=== PATIENT | male | born 1965 | race Caucasian/White ===

== ENCOUNTER → 2017-08-10 10:54 | Outpatient (CLI) | payer OTHER, SELFPAY ==
[2017-08-10 18:44] LABS: Amphetamine/Metha Screen,Urine Negative ng/mL (<1000); Barbiturates Screen,Urine Negative ng/mL (<200); Benzodiazepines Screen,Urine Negative ng/mL (200); Cannabinoid Screen,Urine Negative ng/mL (<50); Cocaine Screen,Urine Negative ng/g (<300); Methadone Screen,Urine Negative ng/mL (<300); Opiate Screen,Urine Negative ng/mL (<300); Phencyclidine Screen,Urine Negative ng/mL (<25)
== END ==
PROVIDERS: Visit Provider Nurse Practitioner Family
DX: Z79.899 Other long term (current) drug therapy (principal)
CPT/HCPCS: 80305

== ENCOUNTER → 2017-08-11 09:21 | Outpatient (REF) | payer OTHER, SELFPAY | LOC: LAB 09:21 | PROVIDERS: Visit Provider Nurse Practitioner Family | DX: Z79.899 Other long term (current) drug therapy (principal) ==

== ENCOUNTER → 2017-11-29 08:29 | Outpatient (CLI) | payer BC, SELFPAY ==
[2017-11-29 08:57] LABS: Basophils # 0.1 K/mm3 (0-0.2); Basophils % 0.9 % (0.1-2.0); Eosinophils # 0.3 K/mm3 (0.0-0.4); Eosinophils % 4.7 % (0.1-12.0); Hemoglobin 14.9 g/dL (14.1-18.0); Lymphocytes # 2.4 K/mm3 (0.7-4.5); Lymphocytes % 33.9 K/mm3 (10-50); Mean Corpuscular HGB Conc 33.1 g/dL (31.8-35.4); Mean Corpuscular Hemoglobin 30.1 pg (27.0-31.2); Mean Corpuscular Volume 91.1 fl (80-94); Mean Platelet Volume 8.6 fl (7.4-10.4); Monocytes # 0.3 K/mm3 (0.1-1.0); Monocytes % 4.6 % (1.7-9.3); Neutrophils % 55.9 % (37.0-80.0); Platelet Count 271 K/mm3 (142-424); Red Blood Count 4.94 M/mm3 (4.60-6.20); Red Cell Distribution Width 13.4 % (11.5-17.5); White Blood Count 7.1 K/mm3 (4.8-10.8)
--- NOTE | 2017-11-29 09:42 | XR_ITS ---
XR hand RT min 3V HISTORY: Pain ITS.REASON: hand ORDERING PHYSICIAN: Evelin Alfredo PATIENT AGE: 52 years COMPARISON: FINDINGS: There are mild osteoarthritic changes of the PIP joint of the third and fourth digits. No fracture or dislocation. Mild cystic changes are present at the lunate. No erosive changes apparent IMPRESSION: Mild osteoarthritis of the right hand
--- NOTE | 2017-11-29 09:42 | XR_ITS ---
XR knee LT 3V HISTORY: ITS.REASON: knee pain ORDERING PHYSICIAN: Evelin Alfredo PATIENT AGE: 52 years COMPARISON: FINDINGS: There are mild osteoarthritic changes involving all 3 compartments slightly greater at the medial compartment with small osteophytes at the medial compartment and posterior patella. No fracture or dislocation. No lytic or blastic change. IMPRESSION: Mild osteoarthritis of the left knee
[2017-11-29 10:26] LABS: Alanine Aminotransferase 41 U/L (12-78); Albumin Level 3.7 gm/dL (3.4-5.0); Alkaline Phosphatase 93 U/L (46-116); Anion Gap 11.7 mEq/L (5-15); Aspartate Amino Transferase 31 U/L (15-37); Bilirubin,Total 1.1 mg/dL (0.2-1.0); Blood Urea Nitrogen 14 mg/dL (7-18); Calcium 9.4 mg/dL (8.5-10.1); Carbon Dioxide 29 mmol/L (21.0-32.0); Chloride 107 mmol/L (98-107); Chol/HDL Ratio 4.8 (1-3.5); Cholesterol 177 mg/dL (140-200); Creatinine,Serum 1.01 mg/dL (0.70-1.30); Estimated Glomerular Filt Rate 77 ml/min (>60); Free T4 (Free Thyroxine) 1.12 ng/dl (0.76-1.46); GFR (African American) 93 ML/MIN (>60); Globulin 3.8 gm/dl (1.3-3.2); Glucose 99 mg/dL (74-106); HDL Cholesterol 37 mg/dL (27-67); LDL Cholesterol 120 mg/dL (0-130); Potassium 4.7 mmoL/L (3.5-5.1); Sodium 143 mmol/L (136-145); Thyroid Stimulating Hormone 5.09 uIU/ml (0.358-3.740); Total Protein,Serum 7.5 gm/dL (6.4-8.2); Triglycerides 100 mg/dL (30-200); VLDL Cholesterol 20 mg/dL (0-40)
== END ==
PROVIDERS: PCP Nurse Practitioner Family; Visit Provider Nurse Practitioner Family
DX: S69.91XA Unspecified injury of right wrist, hand and finger(s), initial encounter (principal); M25.561 Pain in right knee; E66.9 Obesity, unspecified
CPT/HCPCS: 36415; 73130; 73562; 80053; 80061; 84439; 84443; 85025

== ENCOUNTER → 2019-05-29 14:11 | Outpatient (CLI) | payer OTHER, SELFPAY ==
[2019-05-29 14:31] LABS: Basophils # 0.1 K/mm3 (0-0.2); Basophils % 0.8 % (0.1-2.0); Eosinophils # 0.3 K/mm3 (0.0-0.4); Eosinophils % 2.7 % (0.1-12.0); Lymphocytes # 2.2 K/mm3 (0.7-4.5); Lymphocytes % 19.7 % (10-50); Mean Corpuscular HGB Conc 31.9 g/dL (31.8-35.4); Mean Corpuscular Hemoglobin 30.3 pg (27.0-31.2); Mean Corpuscular Volume 94.8 fl (80-94); Mean Platelet Volume 11.2 fl (7.4-10.4); Monocytes # 0.3 K/mm3 (0.1-1.0); Monocytes % 3.1 % (1.7-9.3); Neutrophils # 8.2 K/mm3 (1.8-7.8); Neutrophils % 73.8 % (37.0-80.0); Platelet Count 244 K/mm3 (142-424); Red Blood Count 4.96 M/mm3 (4.60-6.20); Red Cell Distribution Width 13.4 % (11.5-17.5)
[2019-05-29 14:51] LABS: Alanine Aminotransferase 58 U/L (12-78); Albumin Level 3.9 gm/dL (3.4-5.0); Albumin/Globulin Ratio 1.1 (1.1-1.8); Alkaline Phosphatase 91 U/L (46-116); Anion Gap 13.2 mEq/L (5-15); Aspartate Amino Transferase 41 U/L (15-37); Bilirubin,Total 1.1 mg/dL (0.2-1.0); Blood Urea Nitrogen 13 mg/dL (7-18); Calcium 9.2 mg/dL (8.5-10.1); Carbon Dioxide 26 mmol/L (21.0-32.0); Chloride 103 mmol/L (98-107); Chol/HDL Ratio 5.4 (1-3.5); Cholesterol 193 mg/dL (140-200); Creatinine,Serum 0.95 mg/dL (0.70-1.30); Estimated Glomerular Filt Rate 82 ml/min (>60); GFR (African American) 100 ML/MIN (>60); Globulin 3.6 gm/dl (1.3-3.2); Glucose 114 mg/dL (74-106); HDL Cholesterol 36 mg/dL (27-67); LDL Cholesterol 99 mg/dL (0-130); Potassium 4.2 mmoL/L (3.5-5.1); Sodium 138 mmol/L (136-145); T4 (Thyroxine) 8.8 ug/dl (4.7-13.3); Thyroid Stimulating Hormone 4.68 uIU/ml (0.358-3.740); Total Protein,Serum 7.5 gm/dL (6.4-8.2); Triglycerides 290 mg/dL (30-200); VLDL Cholesterol 58 mg/dL (0-40)
[2019-05-31 08:28] LABS: Vitamin D 25 Hydroxy 15.9 ng/mL (30.0-100.0)
== END ==
PROVIDERS: Visit Provider Nurse Practitioner Family
DX: E66.9 Obesity, unspecified (principal); E55.9 Vitamin D deficiency, unspecified; Z79.899 Other long term (current) drug therapy
CPT/HCPCS: 80053; 80061; 82652; 84436; 84443; 85025

== ENCOUNTER → 2020-03-31 12:56 | Outpatient (CLI) | payer MEDICAID, SELFPAY ==
--- NOTE | 2020-03-31 13:00 | XR_ITS ---
PROCEDURE: XR KNEE LT 3V CLINICAL INDICATION: knee pain COMPARISON: CR [id number] XR knee LT 3V from 11/29/2017 FINDINGS: No fracture or dislocation. No lytic or blastic change. There is normal mineralization. There are mild osteoarthritic changes involving all 3 compartments greatest in the medial compartment. No lytic or blastic change. Only minimal progression compared to 11/29/2017. Other findings:None. IMPRESSION: Mild osteoarthritis Dictated by: Luis Miguel Allen MD 03/31/2020 14:17 Luis Miguel Allen MD in [place] 03/31/2020 14:17
[2020-03-31 14:15] LABS: Basophils # 0.1 K/mm3 (0-0.2); Eosinophils # 0.3 K/mm3 (0.0-0.4); Hemoglobin 14.6 g/dL (14.1-18.0); Lymphocytes # 2.4 K/mm3 (0.7-4.5); Lymphocytes % 36.6 % (10-50); Mean Corpuscular HGB Conc 33.9 g/dL (31.8-35.4); Mean Corpuscular Hemoglobin 31.5 pg (27.0-31.2); Mean Corpuscular Volume 93.1 fl (80-94); Mean Platelet Volume 9.6 fl (7.4-10.4); Monocytes # 0.3 K/mm3 (0.1-1.0); Monocytes % 5.1 % (1.7-9.3); Neutrophils # 3.4 K/mm3 (1.8-7.8); Neutrophils % 52.2 % (37.0-80.0); Platelet Count 226 K/mm3 (142-424); Red Blood Count 4.62 M/mm3 (4.60-6.20); Red Cell Distribution Width 13.4 % (11.5-17.5); White Blood Count 6.5 K/mm3 (4.8-10.8)
[2020-03-31 16:29] LABS: Chloride 106 mmol/L (98-107)
[2020-03-31 16:30] LABS: Potassium 4.3 mmoL/L (3.5-5.1); Sodium 139 mmol/L (136-145)
[2020-03-31 16:32] LABS: Alanine Aminotransferase 67 U/L (12-78); Albumin/Globulin Ratio 1.1 (1.1-1.8); Alkaline Phosphatase 110 U/L (38-126); Anion Gap 11.3 mEq/L (5-15); Aspartate Amino Transferase 67 U/L (17-59); Bilirubin,Total 1.1 mg/dl (0.2-1.3); Blood Urea Nitrogen 14 mg/dl (9-20); Carbon Dioxide 26 mmol/L (22.0-30.0); Cholesterol 191 mg/dl (140-200); Estimated Glomerular Filt Rate 100 ml/min (>60); GFR (African American) 121 ML/MIN (>60); Globulin 3.6 g/dL (1.3-3.2); Total Protein,Serum 7.6 g/dl (6.3-8.2); Triglycerides 246 mg/dl (30-150); VLDL Cholesterol 49 mg/dL (0-40)
[2020-03-31 16:33] LABS: Calcium 9.4 mg/dl (8.4-10.2); Glucose 100 mg/dl (74-100); HDL Cholesterol 38 mg/dl (40-60)
[2020-03-31 16:44] LABS: Direct LDL Cholesterol 120.34 mg/dL (100-129)
[2020-03-31 16:50] LABS: T4 (Thyroxine) 10.2 ug/dl (5.53-11.0)
[2020-04-07 14:01] LABS: 1,25 Dihydroxy Vitamin D 42 pg/mL (.); 1,25-Dihydroxy, Vitamin D-2 <10 pg/mL (.); 1,25-Dihydroxy, Vitamin D-3 41 pg/mL (.)
== END ==
PROVIDERS: PCP Nurse Practitioner Family; Visit Provider Nurse Practitioner Family
DX: E07.9 Disorder of thyroid, unspecified (principal); E66.9 Obesity, unspecified; R53.83 Other fatigue; R73.09 Other abnormal glucose; M25.562 Pain in left knee
CPT/HCPCS: 36415; 73562; 80053; 80061; 82652; 83036; 84436; 84443; 85025

== ENCOUNTER → 2020-04-22 13:48 | Outpatient (CLI) | payer MEDICAID, SELFPAY ==
--- NOTE | 2020-04-22 13:53 | XR_ITS ---
PROCEDURE: XR KNEE LT 4V CLINICAL INDICATION: left knee pain COMPARISON: CR [id number] XR knee LT 3V from 11/29/2017 CR XR KNEE LT 3V from 03/31/2020 FINDINGS: No fracture or dislocation. No lytic or blastic change. There is normal mineralization. There are mild osteoarthritic changes involving all 3 compartments greater at the medial compartment and patellofemoral joint. Small lucency is present along the medial femoral condyle centrally and may be due to small cortical defect. No significant change from 03/31/2020. Other findings:None. IMPRESSION: Mild osteoarthritis Dictated by: Luis Miguel Allen MD 04/22/2020 15:06 Luis Miguel Allen MD in [place] 04/22/2020 15:06
== END ==
PROVIDERS: PCP Nurse Practitioner Family; Visit Provider Orthopaedic Surgery
DX: M25.562 Pain in left knee (principal)
CPT/HCPCS: 73564

== ENCOUNTER → 2021-03-31 14:10 | Outpatient (CLI) | payer MEDICAID, SELFPAY ==
[2021-03-31 14:26] LABS: Alanine Aminotransferase 87 U/L (12-78); Albumin Level 3.6 g/dl (3.5-5.0); Alkaline Phosphatase 107 U/L (38-126); Anion Gap 13.5 mEq/L (5-15); Aspartate Amino Transferase 73 U/L (17-59); Basophils % 0.9 % (0.1-2.0); Bilirubin,Total 0.9 mg/dl (0.2-1.3); Blood Urea Nitrogen 14 mg/dl (9-20); Calcium 8.9 mg/dl (8.4-10.2); Carbon Dioxide 23 mmol/L (22.0-30.0); Chloride 105 mmol/L (98-107); Chol/HDL Ratio 5.1 (1-3.5); Cholesterol 180 mg/dl (140-200); Eosinophils # 0.1 K/mm3 (0.0-0.4); Eosinophils % 2.5 % (0.1-12.0); Estimated Glomerular Filt Rate 100 ml/min (>60); GFR (African American) 121 ML/MIN (>60); Globulin 3.6 g/dL (1.3-3.2); Glucose 104 mg/dl (74-100); HDL Cholesterol 35 mg/dl (40-60); Hematocrit 41.8 % (42.0-52.0); Hemoglobin 13.8 g/dL (14.1-18.0); Lymphocytes # 1.8 K/mm3 (0.7-4.5); Lymphocytes % 37.4 % (10-50); Mean Corpuscular Hemoglobin 30.9 pg (27.0-31.2); Mean Corpuscular Volume 93.6 fl (80-94); Mean Platelet Volume 11.4 fl (7.4-10.4); Monocytes # 0.3 K/mm3 (0.1-1.0); Monocytes % 6.2 % (1.7-9.3); Neutrophils # 2.6 K/mm3 (1.8-7.8); Neutrophils % 53.1 % (37.0-80.0); Platelet Count 185 K/mm3 (142-424); Potassium 4.5 mmoL/L (3.5-5.1); Red Blood Count 4.46 M/mm3 (4.60-6.20); Red Cell Distribution Width 13.8 % (11.5-17.5); Sodium 137 mmol/L (136-145); Total Protein,Serum 7.2 g/dl (6.3-8.2); Triglycerides 170 mg/dl (30-150); VLDL Cholesterol 34 mg/dL (0-40); White Blood Count 4.8 K/mm3 (4.8-10.8)
[2021-03-31 14:37] LABS: Direct LDL Cholesterol 98.81 mg/dL (100-129)
[2021-03-31 14:44] LABS: T4 (Thyroxine) 8.8 ug/dl (5.53-11.0)
[2021-03-31 14:45] LABS: 25-OH Vitamin D, Total 30.7 ng/mL (30-100)
[2021-03-31 14:57] LABS: Prostate Specific Ag Screen 0.8 ng/ml (0.0-4.0); Thyroid Stimulating Hormone 5.05 uIU/mL (0.465-4.68)
== END ==
PROVIDERS: Visit Provider Nurse Practitioner Family
DX: E07.9 Disorder of thyroid, unspecified (principal); E55.9 Vitamin D deficiency, unspecified; E66.9 Obesity, unspecified; R73.03 Prediabetes; Z68.37 Body mass index [BMI] 37.0-37.9, adult
CPT/HCPCS: 80053; 80061; 82306; 83036; 84436; 84443; 85025; G0103

== ENCOUNTER → 2023-01-27 14:54 | Outpatient (CLI) | payer MEDICAID, SELFPAY ==
[2023-01-27 16:24] LABS: Alanine Aminotransferase 57 U/L (12-78); Albumin Level 3.7 g/dl (3.5-5.0); Alkaline Phosphatase 117 U/L (38-126); Aspartate Amino Transferase 77 U/L (17-59); Bilirubin,Total 1.9 mg/dl (0.2-1.3); Total Protein,Serum 7.4 g/dl (6.3-8.2)
[2023-01-27 19:00] LABS: Hemoglobin A1C 5.9 % (4.0-6.0)
[2023-01-28 14:08] LABS: Bilirubin, Conjugated 0.1 mg/dL (0.0-0.3); Bilirubin,Direct 0.4 mg/dl (0.0-0.4); Bilirubin,Indirect 1.5 mg/dL (0.0-0.9); Bilirubin,Unconjugated 0.1 mg/dL (0.0-1.1)
[2023-01-29 08:18] LABS: HBsAg Screen Negative (Negative); HCV Ab Non Reactive (Non Reactive); Hep A Ab, IGM Negative (Negative); Hep B Core Ab, IgM Negative (Negative)
== END ==
PROVIDERS: PCP Nurse Practitioner Family; Visit Provider Nurse Practitioner Family
DX: R74.8 Abnormal levels of other serum enzymes (principal); R73.01 Impaired fasting glucose
CPT/HCPCS: 36415; 80074; 80076; 83036

== ENCOUNTER → 2023-01-31 13:18 | Outpatient (CLI) | payer MEDICAID, SELFPAY ==
--- NOTE | 2023-01-31 13:26 | XR_ITS ---
FINAL REPORT CLINICAL HISTORY: left knee pain, FINDINGS: LEFT KNEE SERIES Three views of the left knee were obtained. There is no acute fracture or dislocation. There is mild and moderate degenerative change. There is moderate medial compartment narrowing. There is a small joint effusion. There is no soft tissue abnormality. IMPRESSION: Mild and moderate degenerative change. Moderate medial compartment narrowing. Small joint effusion. Reviewed, Interpreted and Dictated by Sylvester Sanders III, MD Transcribed by Perla Jensen Authenticated and [facility]
== END ==
PROVIDERS: PCP Nurse Practitioner Family; Visit Provider Orthopaedic Surgery
DX: M25.562 Pain in left knee (principal)
CPT/HCPCS: 73562

== ENCOUNTER → 2023-07-04 08:23 | Outpatient (CLI) | payer MEDICAID, SELFPAY ==
--- NOTE | 2023-07-04 08:29 | US_ITS ---
FINAL REPORT CLINICAL HISTORY: ABN LEVELS OFALKALINE PHOSPHATASE ELEVATED COMPARISON: None FINDINGS: Sonographic images of the right upper quadrant were obtained. The pancreas is partially obscured. There is a somewhat coarsened echotexture of the liver. Sludge is present in the gallbladder without definite stones visualized. There is no evidence of biliary ductal dilatation.The common duct measures 2 mm. Limited images of the right kidney are unremarkable. IMPRESSION: Sludge is present in the gallbladder without definite stones visualized. No ductal dilatation is seen. Slight coarsening of the liver echotexture. Reviewed, Interpreted and Dictated by Denis Dumont MD Transcribed by Clementina Malave Authenticated and [facility]
== END ==
PROVIDERS: PCP Nurse Practitioner Family; Visit Provider Nurse Practitioner Family
DX: R74.8 Abnormal levels of other serum enzymes (principal)
CPT/HCPCS: 76705

== ENCOUNTER 2024-02-19 16:30 | Outpatient (CLI) | payer MEDICAID, SELFPAY ==
[2024-02-19 20:05] LABS: Thyroid Stimulating Hormone 2.77 uIU/mL (0.465-4.68)
== END 2024-02-19 23:59 | disposition home or self-care (01) ==
LOC: LAB.DROPOF 02-20 16:30
PROVIDERS: PCP Internal Medicine; Visit Provider Internal Medicine
DX: E07.9 Disorder of thyroid, unspecified (principal)
CPT/HCPCS: 84443

== ENCOUNTER 2024-04-03 10:31 | Outpatient (CLI) | payer MEDICAID, SELFPAY ==
--- NOTE | 2024-04-03 10:38 | XR_ITS ---
FINAL REPORT CLINICAL HISTORY: left knee pain COMPARISON: 04/22/2020 FINDINGS: Three views of the left knee reveal no evidence of fracture or dislocation. The bony alignment is normal. Moderate degenerative change is present. There is significant medial compartment joint space narrowing, which is worse than seen on the prior exam of 2019. There is no evidence of joint effusion. No localized soft tissue abnormality is seen. IMPRESSION: Progressive medial compartment joint space narrowing since the prior exam of 2019. No acute bony abnormality is identified. Reviewed, Interpreted and Dictated by Sylvester Sanders III, MD Transcribed by Clementina Malave Authenticated and . [facility]
== END 2024-04-03 23:59 | disposition home or self-care (01) ==
LOC: RAD 10:35
PROVIDERS: PCP Internal Medicine; Visit Provider Physician Assistant
DX: M25.562 Pain in left knee (principal)
CPT/HCPCS: 73562

== ENCOUNTER 2024-04-05 09:00 | Outpatient (RCR) | payer MEDICAID, SELFPAY ==
--- NOTE | 2024-02-26 09:11 | HMH.PTOPEV ---
PT Outpatient Evaluation Rehab PT Outpatient Evaluation Start: 02/26/24 08:07 Freq: Status: Active Protocol: Document 02/26/24 08:36 ROBYN (Rec: 02/26/24 09:11 ROBYN [id number]) E-signed By Chay Levin, PT Outpatient Therapy Subjective History Subjective History Patient Gerhard Poole is a 58 year old male presenting to outpatient PT with the chief complaint of L knee pain that comes and goes. His L knee pain has been present for approximately 2 years. His PMH consist of increase BP of the past 6 months which is being treated through his PCP. Patient had x-ray imaging on ( 01/31/23) resulting stating Mild and moderate degenerative change, Moderate medial compartment narrowing, and Small joint effusion. 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 Patient's goal is to return back to his sport with little pain to no pain during events. Patient mentioned that he takes the prescription naproxen to help alleviate his left knee pain when the pain is unbearable. Patient mentioned that he has previously gotten injections into his L knee but is unable to tell if they actually work. New diagnosis of cancer in past 12 No months? Chief Complaint Pain,Stiff Symptom Type Ache Symptoms Relieved By Prescription Meds Symptoms Aggravated By Sitting,Standing,Bending/ Stooping,Physical Activity, Lifting Prior Functional Limitations None Current Functional Limitations Standing,Sitting,Squatting, Recreation Activity,Walking, Stairs,Bending/Stooping Symptom Description Activity Dependent Level of pain today (0-10) 1 Pain scale - at its worst (0-10) 6 Hip/Knee Eval Palpation Tenderness left Knee Palpation Finding Tenderness Knee Palpation Overall Comment PPT: L knee at patellar tendon 4/5 MMT right Hip Flexion Strength Grade 5 Normal Hip Abduction Strength Grade 5 Normal Hip Adduction Strength Grade 5 Normal Knee Extension Strength Grade 5 Normal Knee Flexion Strength Grade 5 Normal left Hip Flexion Strength Grade 5 Normal Hip Adduction Strength Grade 5 Normal Knee Extension Strength Grade 5 Normal Knee Flexion Strength Grade 4 Good ROM right Knee Extension Active Range of Motion ( -3 degrees) Knee Flexion Active Range of Motion ( 105 degrees) left Knee Extension Active Range of Motion ( -5 degrees) Knee Flexion Active Range of Motion ( 90 degrees) Special Tests Hip Piriformis Test Negative Left,Negative Right Knee Anterior Drawer Test Negative Left,Negative Right Knee Valgus Stress Test Negative Left,Negative Right Knee Varus Stress Test Negative Left,Negative Right Patella Apprehension Test Negative Right,Positive Left Lower Extremity Functional Index Activities Today, do you or would you have any difficulty at all with: a.Any of your usual work, housework or A little bit of difficulty school activities b. Your usual hobbies, recreational or A little bit of difficulty sporting activities c. Getting into or out of the bath No difficulty d. Walking between rooms No difficulty e. Putting on your shoes or socks No difficulty f. Squatting Quite a bit of difficulty g. Lifting an object, like a bag of No difficulty groceries from the floor h. Performing light activities around No difficulty your home i. Performing heavy activities around Moderate difficulty your home j. Getting into or out of a car A little bit of difficulty k. Walking 2 blocks No difficulty l. Walking a mile No difficulty m. Going up or down 10 stairs (about 1 A little bit of difficulty flight of stairs) n. Standing for 1 hour No difficulty o. Sitting for 1 hour No difficulty p. Running on even ground A little bit of difficulty q. Running on uneven ground A little bit of difficulty r. Making sharp turns while running fast A little bit of difficulty s. Hopping A little bit of difficulty t. Rolling over in bed No difficulty LEFI Score Lower Extremity Functional Index Score 67 Outpatient Therapy Assessment Impairments Problems/Impairmments Palpation Tenderness,Impaired Range of Motion,Impaired Stair Climbing,Impaired Incline Stepping,Impaired Stepping on Uneven Surface,Impaired Recreational Activities, Subjective C/O Pain Prognosis Rehab Potential Good Comment Patient is a good candidate for skilled PT to address his pain level with activity and the limited ROM in his L knee, he will significantly benefit to improve both to increase QOL. Short Term Goals Number of Weeks 4 Decreased Palpation Tenderness Yes: PPT at L knee patellar tendon 4/5 to 3/5 Increase Range of Motion Yes: L Knee AROM by 5- 10 degrees Improve Ability to Climb Stairs Yes: climb 5 stairs with 5/10 pain or less Improve LEFI Score Yes: Score: 70 or above Decrease Subjective C/O Pain Yes: at worst from a 6/10 to 5 /10 Patient to be Ind w/ HEP Yes Flight Service Specialist Goals Number of Weeks 6 Decreased Palpation Tenderness Yes: PPT at L knee patellar tendon 3/5 to 2/5 or below Increase Range of Motion Yes: L knee AROM to functional range 120 degrees or greater Increase Ability to Stand Yes: SLS time of 15 sec or greater on L LE Improve LEFI Score Yes: Score: 75 or above Decrease Subjective C/O Pain Yes: at worst from a 5/10 to 4 /10 or below Patient to be Ind w/ Advanced HEP Yes Outpatient Therapy Plan of Care Treatment Plan May Include Therapeutic Exercise Including Home Yes Exercise Program Manual Therapy Techniques Yes Neuromuscular Re-education Yes Therapeutic Activities to Return to Yes Previous Functional/Work Level Gait Training Yes ADL/Self Care Education Yes Dry Needling Yes Thermal Modalities Yes Electrical Stimulation Yes Ultrasound/Phonophoresis Yes Iontophoresis Yes Orthotics/Bracing/Splinting Yes Vasopneumatic Compression Pump Yes Manual Lymphatic Drainage Yes Eval/Re-Eval Yes Frequency Times per week 1-2 Duration Number of Weeks 4-6 Addendums This patient is a candidate for social No or vocational rehab? Patient/Guardian verbally acknowledges Yes understanding of treatment program and consents to further treatment? Patient/Guardian verbally acknowledges Yes understanding of diagnosis, prognosis and goals for treatment? Eval Complexity PT Charges 71505 - High Complexity Shoulder/Elbow Eval Shoulder Objective Measurements Elbow Objective Measurements PHYSICIAN CERTIFICATION: I certify the specified therapy services for Gerhard Poole are required, authorized, and reviewed every 30 days.
--- NOTE | 2024-03-27 10:40 | HMH.RHREAS ---
Rehab Reassessment Rehab OP Re-assessment Start: 02/26/24 08:07 Freq: Status: Active Protocol: Document 03/27/24 10:34 ROBYN (Rec: 03/27/24 10:40 PHOISAURO [id number]) E-signed By Chay Levin, PT Rehab Re-assessment Subjective Subjective Pt reports no pain at rest or in standing. His pain is increased most specifically by bowling with his L LE being his stance leg. He reports pain with bowling 3-4/10 at this time. He also reports no relief from injections he has had up to this point in the L knee. Objective Objective Notes MMT L LE: HIP FLEX 4+/5, OTHERWISE 5/5 THROUGHOUT. AROM L KNEE: 0-100 deg. TTP: 0/4 TTP noted throughout the L knee this date. Recreational activities: Pain increased on medial side of L knee with competitive bowling, 3-4/10. Assessment Progress Assessment Progressing as Expected Assessment Notes Pt has shown improvements in overall L knee ROM and L LE strength. This does correlate to decrease in pain at worst, but discomfort remains. Skilled therapy remains indicated for improving L knee stability to allow return to PLOF. Patient goals met ST/6 LT/6 Plan Plan Continue per initial POC. Frequency of Therapy 2-3 x/wk Duration of therapy 4 wks Time and Billing Re-Eval Time 12 Re-Eval Billing Units 1 PHYSICIAN CERTIFICATION: I certify the specified therapy services for Gerhard Poole are required, authorized, and reviewed every 30 days.
== END 2024-04-10 23:59 | disposition home or self-care (01) ==
LOC: PT 09:00
PROVIDERS: Visit Provider Internal Medicine
DX: M17.0 Bilateral primary osteoarthritis of knee (principal)
CPT/HCPCS: 97110; 97163; 97164; 97530